=== PATIENT | female | born 1950 | race Caucasian/White ===

== ENCOUNTER 2021-02-03 15:27 | Inpatient (IN) | payer MEDICARE ==
[~2021-02-03] VITALS: Ht 165.1 cm; Wt 69.7 kg
[~2021-02-03 15:27] MED LIST: ASCO500W4 PO; BISA10SU71 PR; CA C1TAB62 PO; CRAN500T3 PO; DIAZ2TAB PO; DIPH25CA61 PO; L.AC1CAP6 PO; MOM; MONOLAURIN PO; MULT-658 PO; PHEN57OI PR; POTA20TA89 PO; THIA100T67 PO; VANC125C11 PO; [UNRECOGNIZED DRUG - CODE] EXT
--- NOTE | 2021-02-03 15:27 | NUR ---
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
--- NOTE | 2021-02-03 16:01 | NUR ---
PT LAYING ON GURNEY AWAKE & COMFORTABLE, RESPONDS APPROP TO STAFF, AUDREY VU PROVIDED FOR INCONT STOOL & PT REPOSITIONED OFF SACRUM- NO OTHER NEEDS AT THIS TIME, CALL LIGHT WITHIN REACH.
--- NOTE | 2021-02-03 16:25 | NUR ---
TASK RN: ASSIST PT WITH REPOSITIONING OFF BACK TO LEFT SIDE. CALL LIGHT IN REACH. AWAITING FURTHER DISPOSITION.
[2021-02-03] MEDS ORDERED: PLEASE ENTER HEIGHT AND WEIGHT MC SCH (16:30)
[2021-02-03] MEDS ORDERED: SODIUM CHLORIDE FLUSH 10ML SYR IVF ONE (16:30)
[2021-02-03 16:40] LABS: BASOPHILS % (AUTO) 1 % (0-1); EOSINOPHILS % (AUTO) 1 % (1-7); LYMPHOCYTES % (AUTO) 14 % (22-44); MEAN CORPUSCULAR HEMOGLOBIN 32.2 pg (27.0-34.8); MEAN CORPUSCULAR HGB CONC 33.5 g/dL (32.4-35.8); MEAN PLATELET VOLUME 7.6 fL (7.4-10.4); MONOCYTES % (AUTO) 9 % (2-9); NEUTROPHILS % (AUTO) 76 % (42-75); PLATELET COUNT 346 x10^3/uL (130-400); RED BLOOD COUNT 3.92 x10^6/uL (3.82-5.3); RED CELL DISTRIBUTION WIDTH 14.4 % (9.6-15.2)
[2021-02-03 16:49] LABS: ALANINE AMINOTRANSFERASE 35 U/L (12-78); ALBUMIN 2.5 g/dL (3.4-5.0); ANION GAP 4 mmol/L (5-15); CALCIUM 8.3 mg/dL (8.5-10.1); CHLORIDE 104 mmol/L (98-107)
[2021-02-03 16:50] LABS: CREATININE < 0.15 mg/dL (0.55-1.02)
[2021-02-03 16:51] LABS: ALKALINE PHOSPHATASE 88 U/L (45-117); BILIRUBIN,TOTAL 0.4 mg/dL (0.2-1.0); TOTAL PROTEIN 5.9 g/dL (6.4-8.2)
--- NOTE | 2021-02-03 16:54 | NUR ---
Note bailey in ED - 02/03/21 at 1655 by CORY TASK RN: PT SITTING UP ON EFRAÍN, NO ACUTE DISTRESS NOTED. NO C/O OFFERED. PT AWARE OF WAITING FOR MD EVAL/ORDERS.
--- NOTE | 2021-02-03 17:04 | NUR ---
PT CONTINUES LAYING ON GURNEY AWAKE & COMFORTABLE, RESPONDS APPROP TO STAFF, NAD, PT REPOSITIONED OFF SACRUM- NO OTHER NEEDS AT THIS TIME, CALL LIGHT WITHIN REACH.
[2021-02-03] MEDS ORDERED: SODIUM CHLORIDE FLUSH 10ML SYR IVF PRN (17:30)
[2021-02-03] MEDS ORDERED: SODIUM CHLORIDE 0.9% 1,000 ML IV ONE (17:30)
[2021-02-03] MEDS ORDERED: ONDANSETRON 2MG/ML, 2ML IVPush PRN (18:00)
[2021-02-03] MEDS ORDERED: PROMETHAZINE 25 MG/ML, 1ML IM PRN (18:00)
[2021-02-03] MEDS ORDERED: ONDANSETRON ODT 4 MG PO PRN (18:00)
[2021-02-03] MEDS ORDERED: hydrALAzine 20 MG/ML, 1ML IVPush PRN (18:00)
[2021-02-03] MEDS ORDERED: ACETAMINOPHEN 325 MG TABLET PO PRN (18:00)
[2021-02-03] MEDS ORDERED: POLYETHYLENE GLYCOL 17 GM PACKET PO PRN (18:00)
[2021-02-03] MEDS ORDERED: DIAZEPAM 2 MG TABLET PO PRN (18:00)
[2021-02-03] MEDS ORDERED: OXYcodone IR 5MG TABLET PO PRN (18:00)
[2021-02-03] MEDS ORDERED: HYDROmorphone 2 MG/ML, 1ML IVPush PRN (18:00)
[2021-02-03] MEDS ORDERED: DOCUSATE 100 MG CAPSULE PO PRN (18:00)
[2021-02-03] MEDS ORDERED: ENOXAPARIN 40 MG/0.4 ML SQ SCH (18:00)
--- NOTE | 2021-02-03 20:12 | NUR ---
Pt to be admitted to MEDICAL, room 331. Report called to DRABY.
[2021-02-03 21:00] VITALS: BP 106/62
[2021-02-03] MEDS: SODIUM CHLORIDE 0.9% 1,000 ML IV SCH (21:55)
[2021-02-03] MEDS: ENOXAPARIN 30 MG/0.3 ML SQ SCH (21:57)
[2021-02-04 00:04] VITALS: BP 114/69
[2021-02-04] MEDS: DIPHENHYDRAMINE 25 MG CAPSULE PO PRN ×2 (00:26→21:16)
[2021-02-04] MEDS: DIAZEPAM 2 MG TABLET PO PRN ×2 (03:18→21:16)
[2021-02-04 05:27] LABS: ALANINE AMINOTRANSFERASE 32 U/L (12-78); ALBUMIN 2.1 g/dL (3.4-5.0); CALCIUM 8.3 mg/dL (8.5-10.1); CHLORIDE 107 mmol/L (98-107)
[2021-02-04 05:38] LABS: BASOPHILS % (AUTO) 1 % (0-1); EOSINOPHILS % (AUTO) 3 % (1-7); LYMPHOCYTES % (AUTO) 31 % (22-44); MEAN CORPUSCULAR HEMOGLOBIN 32.3 pg (27.0-34.8); MEAN CORPUSCULAR HGB CONC 33.2 g/dL (32.4-35.8); MEAN PLATELET VOLUME 8.2 fL (7.4-10.4); MONOCYTES % (AUTO) 9 % (2-9); NEUTROPHILS % (AUTO) 57 % (42-75); PLATELET COUNT 336 x10^3/uL (130-400); RED CELL DISTRIBUTION WIDTH 14.4 % (9.6-15.2)
[2021-02-04 05:40] LABS: ALKALINE PHOSPHATASE 72 U/L (45-117); BILIRUBIN,TOTAL 0.4 mg/dL (0.2-1.0); TOTAL PROTEIN 5.4 g/dL (6.4-8.2)
[2021-02-04 05:55] LABS: CREATININE < 0.15 mg/dL (0.55-1.02)
[2021-02-04 06:01] LABS: ANION GAP 5 mmol/L (5-15)
[2021-02-04] MEDS: SODIUM CHLORIDE 0.9% 1,000 ML IV SCH (06:30)
[2021-02-04 08:00] VITALS: BP 117/74
[2021-02-04] MEDS: ENOXAPARIN 30 MG/0.3 ML SQ SCH (08:09)
[2021-02-04] MEDS: MULTIVITAMIN 1 TABLET PO SCH (08:09)
[2021-02-04 12:27] VITALS: BP 113/78
[2021-02-04] MEDS ORDERED: MAGNESIUM HYDROXIDE 8%, 30ML UDC PO SCH (13:30)
[2021-02-04] MEDS: ASCORBIC ACID 500 MG TABLET PO SCH (13:30)
[2021-02-04 15:15] LABS: MICROSCOPIC AUTO
[2021-02-04] MEDS: MAGNESIUM HYDROXIDE 8%, 30ML UDC PO SCH (17:26)
[2021-02-04 19:18] VITALS: BP 112/67
[2021-02-05] MEDS: BISACODYL 10 MG SUPP PR PRN (01:49)
[2021-02-05] MEDS ORDERED: DIAZEPAM 2 MG TABLET PO ONE (02:00)
[2021-02-05 06:52] VITALS: BP 119/74
[2021-02-05] MEDS: ASCORBIC ACID 500 MG TABLET PO SCH (09:00)
[2021-02-05] MEDS ORDERED: TEMPLATE NON-FORMULARY MED. (Ca Carb & Gluc/Mag Ox & Gluc** (Calcium Magnesium Caplet**) 1 PO SCH (09:00)
[2021-02-05] MEDS: MULTIVITAMIN 1 TABLET PO SCH (09:00)
[2021-02-05] MEDS: ENOXAPARIN 30 MG/0.3 ML SQ SCH (09:00)
[2021-02-05 12:05] VITALS: BP 122/73
[2021-02-05 18:29] VITALS: BP 99/65
[2021-02-05] MEDS: DIAZEPAM 2 MG TABLET PO SCH (21:16)
[2021-02-05] MEDS: DIPHENHYDRAMINE 25 MG CAPSULE PO PRN (21:16)
[2021-02-06 01:26] VITALS: BP 103/53
[2021-02-06] MEDS: DIAZEPAM 2 MG TABLET PO SCH ×2 (01:33→21:06)
[2021-02-06] MEDS: ENOXAPARIN 30 MG/0.3 ML SQ SCH (09:00)
[2021-02-06] MEDS: MAGNESIUM HYDROXIDE 8%, 30ML UDC PO SCH ×2 (09:00→17:40)
[2021-02-06] MEDS: ASCORBIC ACID 500 MG TABLET PO SCH (09:00)
[2021-02-06] MEDS: MULTIVITAMIN 1 TABLET PO SCH (09:00)
[2021-02-06 09:31] VITALS: BP 112/56
[2021-02-06 13:17] VITALS: BP 101/47
[2021-02-06 19:54] VITALS: BP 114/76
[2021-02-06] MEDS: DIPHENHYDRAMINE 25 MG CAPSULE PO PRN (21:06)
[2021-02-07] MEDS: BISACODYL 10 MG SUPP PR PRN (01:06)
[2021-02-07] MEDS: DIAZEPAM 2 MG TABLET PO SCH ×3 (02:32→21:02)
[2021-02-07 03:34] LABS: CLOSTRIDIUM DIFFICILE ANTIGEN NEGATIVE; CLOSTRIDIUM DIFFICILE TOXIN NEGATIVE (Negative)
[2021-02-07 06:53] VITALS: BP 110/68
[2021-02-07] MEDS: ASCORBIC ACID 500 MG TABLET PO SCH (07:50)
[2021-02-07] MEDS: MULTIVITAMIN 1 TABLET PO SCH (09:00)
[2021-02-07] MEDS: ENOXAPARIN 30 MG/0.3 ML SQ SCH (09:00)
[2021-02-07] MEDS ORDERED: DIAZEPAM 2 MG TABLET PO PRN (09:30)
[2021-02-07 12:19] VITALS: BP 93/50
[2021-02-07 18:43] VITALS: BP 98/61
[2021-02-07] MEDS: DIPHENHYDRAMINE 25 MG CAPSULE PO PRN (21:01)
[2021-02-08 00:55] VITALS: BP 115/57
[2021-02-08] MEDS: DIAZEPAM 2 MG TABLET PO SCH ×2 (03:00→21:00)
[2021-02-08 03:13] VITALS: BP 92/51
[2021-02-08 06:57] VITALS: BP 110/72
[2021-02-08] MEDS: MAGNESIUM HYDROXIDE 8%, 30ML UDC PO SCH (09:00)
[2021-02-08] MEDS: ENOXAPARIN 30 MG/0.3 ML SQ SCH (09:00)
[2021-02-08] MEDS: MULTIVITAMIN 1 TABLET PO SCH (09:00)
[2021-02-08] MEDS: ASCORBIC ACID 500 MG TABLET PO SCH (09:00)
[2021-02-08] MEDS: D5%-0.9% NACL 1,000 ML IV SCH ×2 (09:30→21:16)
[2021-02-08 10:19] LABS: ANION GAP 10 mmol/L (5-15); CALCIUM 10.4 mg/dL (8.5-10.1); CHLORIDE 99 mmol/L (98-107)
[2021-02-08 10:22] LABS: CREATININE 0.35 mg/dL (0.55-1.02)
[2021-02-08 13:55] VITALS: BP 105/70
[2021-02-08 18:30] VITALS: BP 107/68
[2021-02-08] MEDS ORDERED: LORazepam 2 MG/ML, 1ML IVPush PRN (20:00)
[2021-02-08] MEDS: DIPHENHYDRAMINE 50 MG/ML, 1ML IVPush PRN (21:17)
[2021-02-09 00:20] VITALS: BP 116/59
[2021-02-09] MEDS: DIAZEPAM 2 MG TABLET PO SCH ×2 (02:56→21:20)
[2021-02-09 05:23] LABS: CHLORIDE 107 mmol/L (98-107)
[2021-02-09 05:33] LABS: ANION GAP 5 mmol/L (5-15); CALCIUM 8.9 mg/dL (8.5-10.1)
[2021-02-09 05:34] LABS: BASOPHILS % (AUTO) 1 % (0-1); EOSINOPHILS % (AUTO) 0 % (1-7); LYMPHOCYTES % (AUTO) 16 % (22-44); MEAN CORPUSCULAR HEMOGLOBIN 32.1 pg (27.0-34.8); MEAN CORPUSCULAR HGB CONC 32.9 g/dL (32.4-35.8); MONOCYTES % (AUTO) 12 % (2-9); NEUTROPHILS % (AUTO) 71 % (42-75); PLATELET COUNT 351 x10^3/uL (130-400); RED BLOOD COUNT 4.34 x10^6/uL (3.82-5.3); RED CELL DISTRIBUTION WIDTH 14.6 % (9.6-15.2)
[2021-02-09 05:37] LABS: CREATININE < 0.15 mg/dL (0.55-1.02)
[2021-02-09 07:06] VITALS: BP 137/74
[2021-02-09] MEDS: BISACODYL 10 MG SUPP PR PRN (08:45)
[2021-02-09] MEDS: MULTIVITAMIN 1 TABLET PO SCH (08:45)
[2021-02-09] MEDS: ASCORBIC ACID 500 MG TABLET PO SCH (08:45)
[2021-02-09] MEDS: ENOXAPARIN 30 MG/0.3 ML SQ SCH (09:00)
[2021-02-09] MEDS: D5%-0.9% NACL 1,000 ML IV SCH (12:00)
[2021-02-09 13:41] VITALS: BP 104/63
[2021-02-09 20:00] VITALS: BP 114/71
[2021-02-09] MEDS: DIPHENHYDRAMINE 25 MG CAPSULE PO PRN (21:20)
[2021-02-10 00:45] VITALS: BP 112/66
[2021-02-10] MEDS: DIAZEPAM 2 MG TABLET PO SCH ×2 (02:28→21:52)
[2021-02-10 07:00] LABS: ANION GAP 6 mmol/L (5-15); CALCIUM 8.4 mg/dL (8.5-10.1); CHLORIDE 103 mmol/L (98-107)
[2021-02-10 07:04] LABS: CREATININE < 0.15 mg/dL (0.55-1.02)
[2021-02-10 07:22] VITALS: BP 106/65
[2021-02-10] MEDS: ASCORBIC ACID 500 MG TABLET PO SCH (08:04)
[2021-02-10] MEDS: ENOXAPARIN 30 MG/0.3 ML SQ SCH (08:04)
[2021-02-10] MEDS: MULTIVITAMIN 1 TABLET PO SCH (08:04)
[2021-02-10] MEDS: MAGNESIUM HYDROXIDE 8%, 30ML UDC PO SCH ×3 (08:04→18:25)
[2021-02-10 15:12] VITALS: BP 115/68
[2021-02-10 21:51] VITALS: BP 102/59
[2021-02-10] MEDS: DIPHENHYDRAMINE 25 MG CAPSULE PO PRN (21:52)
[2021-02-11] MEDS: BISACODYL 10 MG SUPP PR PRN (01:55)
[2021-02-11 03:12] VITALS: BP 105/63
[2021-02-11] MEDS: DIAZEPAM 2 MG TABLET PO SCH ×2 (03:15→20:18)
[2021-02-11 07:02] VITALS: BP 135/75
[2021-02-11] MEDS: ASCORBIC ACID 500 MG TABLET PO SCH (09:00)
[2021-02-11] MEDS: MULTIVITAMIN 1 TABLET PO SCH (09:00)
[2021-02-11] MEDS: ENOXAPARIN 30 MG/0.3 ML SQ SCH (09:00)
[2021-02-11 12:02] VITALS: BP 132/78
[2021-02-11 18:25] VITALS: BP 93/57
[2021-02-11] MEDS: DIPHENHYDRAMINE 25 MG CAPSULE PO PRN (20:18)
[2021-02-11] MEDS: MAGNESIUM HYDROXIDE 8%, 30ML UDC PO SCH (20:19)
[2021-02-12 00:17] VITALS: BP 102/69
[2021-02-12] MEDS: DIAZEPAM 2 MG TABLET PO SCH ×2 (01:57→20:16)
[2021-02-12] MEDS: ASCORBIC ACID 500 MG TABLET PO SCH (08:42)
[2021-02-12] MEDS: ENOXAPARIN 30 MG/0.3 ML SQ SCH (08:43)
[2021-02-12] MEDS: MULTIVITAMIN 1 TABLET PO SCH (08:43)
[2021-02-12 10:44] VITALS: BP 108/69
[2021-02-12 12:02] VITALS: BP 113/70
[2021-02-12] MEDS: MAGNESIUM HYDROXIDE 8%, 30ML UDC PO SCH (17:00)
[2021-02-12 18:23] VITALS: BP 96/60
[2021-02-12] MEDS: DIPHENHYDRAMINE 25 MG CAPSULE PO PRN (20:16)
[2021-02-13 00:04] VITALS: BP 95/61
[2021-02-13] MEDS: DIAZEPAM 2 MG TABLET PO SCH ×3 (02:22→20:09)
[2021-02-13 06:39] VITALS: BP 98/61
[2021-02-13] MEDS: ASCORBIC ACID 500 MG TABLET PO SCH (08:48)
[2021-02-13] MEDS: MAGNESIUM HYDROXIDE 8%, 30ML UDC PO SCH (09:00)
[2021-02-13] MEDS: MULTIVITAMIN 1 TABLET PO SCH (09:00)
[2021-02-13] MEDS: ENOXAPARIN 30 MG/0.3 ML SQ SCH (09:00)
[2021-02-13 12:16] VITALS: BP 97/94
[2021-02-13 18:35] VITALS: BP 96/56
[2021-02-13] MEDS: DIPHENHYDRAMINE 25 MG CAPSULE PO PRN (20:10)
[2021-02-14] MEDS: DIAZEPAM 2 MG TABLET PO SCH ×3 (00:04→20:45)
[2021-02-14 07:06] VITALS: BP 96/58
[2021-02-14] MEDS: MULTIVITAMIN 1 TABLET PO SCH (08:56)
[2021-02-14] MEDS: ASCORBIC ACID 500 MG TABLET HOMEMEDPO SCH (08:56)
[2021-02-14] MEDS: ENOXAPARIN 30 MG/0.3 ML SQ SCH (08:58)
[2021-02-14 12:58] VITALS: BP 97/63
[2021-02-14] MEDS: MAGNESIUM HYDROXIDE 8%, 30ML UDC HOMEMEDPO SCH (16:53)
[2021-02-14 18:13] VITALS: BP 118/75
[2021-02-14] MEDS: DIPHENHYDRAMINE 50 MG/ML, 1ML IVPush PRN (20:49)
[2021-02-15 00:04] VITALS: BP 104/70
[2021-02-15] MEDS: BISACODYL 10 MG SUPP PR PRN (01:39)
[2021-02-15] MEDS: DIAZEPAM 2 MG TABLET PO SCH ×3 (02:53→20:24)
[2021-02-15] MEDS ORDERED: BISACODYL 10 MG SUPP PR ONE (06:30)
[2021-02-15 06:58] VITALS: BP 106/70
[2021-02-15] MEDS: ENOXAPARIN 30 MG/0.3 ML SQ SCH (08:31)
[2021-02-15] MEDS: MULTIVITAMIN 1 TABLET PO SCH (08:31)
[2021-02-15] MEDS: ASCORBIC ACID 500 MG TABLET HOMEMEDPO SCH (08:31)
[2021-02-15] MEDS: D5%-0.45% NACL 1,000 ML IV SCH ×3 (12:00→23:20)
[2021-02-15 13:26] VITALS: BP 103/71
[2021-02-15] MEDS ORDERED: MAGNESIUM HYDROXIDE 8%, 30ML UDC HOMEMEDPO SCH (17:00)
[2021-02-15 18:14] VITALS: BP 99/68
[2021-02-15] MEDS: DIPHENHYDRAMINE 25 MG CAPSULE PO PRN (20:24)
[2021-02-16 00:02] VITALS: BP 96/64
[2021-02-16] MEDS: DIAZEPAM 2 MG TABLET PO SCH ×3 (00:06→22:01)
[2021-02-16] MEDS: D5%-0.45% NACL 1,000 ML IV SCH ×3 (01:06→23:01)
[2021-02-16] MEDS ORDERED: DIAZEPAM 5 MG/ML, 2ML IV ONE (03:40)
[2021-02-16] MEDS ORDERED: DIAZEPAM 5 MG/ML, 2ML ONE (03:48)
[2021-02-16] MEDS: ASCORBIC ACID 500 MG TABLET HOMEMEDPO SCH (09:00)
[2021-02-16] MEDS: MULTIVITAMIN 1 TABLET PO SCH (09:00)
[2021-02-16] MEDS ORDERED: DIAZEPAM 5 MG/ML, 2ML IV SCH ×2 (09:00→21:00)
[2021-02-16] MEDS: ENOXAPARIN 30 MG/0.3 ML SQ SCH (09:00)
[2021-02-16] MEDS: MAGNESIUM HYDROXIDE 8%, 30ML UDC HOMEMEDPO SCH ×2 (14:37→18:22)
[2021-02-16 19:24] VITALS: BP 98/64
[2021-02-16] MEDS: DIPHENHYDRAMINE 25 MG CAPSULE PO PRN (22:01)
[2021-02-17] MEDS ORDERED: DIAZEPAM 2 MG TABLET PO PRN
[2021-02-17] MEDS: DIAZEPAM 2 MG TABLET PO SCH ×3 (02:30→21:49)
[2021-02-17 02:34] VITALS: BP 94/61
[2021-02-17] MEDS ORDERED: DIAZEPAM 5 MG/ML, 2ML IV SCH ×2 (03:00)
[2021-02-17] MEDS ORDERED: DIAZEPAM 2 MG TABLET PO SCH ×2 (03:00→09:30)
[2021-02-17 05:52] LABS: BASOPHILS % (AUTO) 1 % (0-1); EOSINOPHILS % (AUTO) 1 % (1-7); LYMPHOCYTES % (AUTO) 23 % (22-44); MEAN CORPUSCULAR HEMOGLOBIN 32.9 pg (27.0-34.8); MEAN CORPUSCULAR HGB CONC 34.3 g/dL (32.4-35.8); MEAN PLATELET VOLUME 8.4 fL (7.4-10.4); MONOCYTES % (AUTO) 7 % (2-9); NEUTROPHILS % (AUTO) 69 % (42-75); PLATELET COUNT 353 x10^3/uL (130-400); RED BLOOD COUNT 4.35 x10^6/uL (3.82-5.3); RED CELL DISTRIBUTION WIDTH 13.9 % (9.6-15.2)
[2021-02-17 06:13] LABS: CHLORIDE 99 mmol/L (98-107)
[2021-02-17 06:27] LABS: ALANINE AMINOTRANSFERASE 24 U/L (12-78); ALBUMIN 2.8 g/dL (3.4-5.0); ALKALINE PHOSPHATASE 92 U/L (45-117); ANION GAP 6 mmol/L (5-15); BILIRUBIN,TOTAL 0.3 mg/dL (0.2-1.0); CREATININE 0.15 mg/dL (0.55-1.02); TOTAL PROTEIN 6.3 g/dL (6.4-8.2)
[2021-02-17 06:54] VITALS: BP 100/60
[2021-02-17] MEDS: ENOXAPARIN 30 MG/0.3 ML SQ SCH (09:00)
[2021-02-17] MEDS: ASCORBIC ACID 500 MG TABLET HOMEMEDPO SCH (09:00)
[2021-02-17] MEDS: MULTIVITAMIN 1 TABLET PO SCH (09:00)
[2021-02-17 22:03] VITALS: BP 92/54
[2021-02-17] MEDS: DIPHENHYDRAMINE 25 MG CAPSULE PO PRN (22:05)
[2021-02-18 00:09] VITALS: BP 95/59
[2021-02-18] MEDS: DIAZEPAM 2 MG TABLET PO SCH ×3 (00:22→21:27)
[2021-02-18] MEDS: ENOXAPARIN 30 MG/0.3 ML SQ SCH (07:23)
[2021-02-18] MEDS: MULTIVITAMIN 1 TABLET PO SCH (07:23)
[2021-02-18] MEDS: ASCORBIC ACID 500 MG TABLET HOMEMEDPO SCH ×2 (07:23→11:19)
[2021-02-18 16:13] VITALS: BP 90/53
[2021-02-18] MEDS: MAGNESIUM HYDROXIDE 8%, 30ML UDC HOMEMEDPO SCH (17:01)
[2021-02-18 18:26] VITALS: BP 95/59
[2021-02-18] MEDS: DIPHENHYDRAMINE 25 MG CAPSULE PO PRN (21:27)
[2021-02-19 01:40] VITALS: BP 93/60
[2021-02-19] MEDS: DIAZEPAM 2 MG TABLET PO SCH ×4 (02:29→23:54)
[2021-02-19] MEDS: ENOXAPARIN 30 MG/0.3 ML SQ SCH (09:00)
[2021-02-19] MEDS: MULTIVITAMIN 1 TABLET PO SCH (09:00)
[2021-02-19 09:35] VITALS: BP 108/70
[2021-02-19] MEDS: ASCORBIC ACID 500 MG TABLET HOMEMEDPO SCH (10:09)
[2021-02-19 15:00] VITALS: BP 90/58
[2021-02-19 19:04] VITALS: BP 94/58
[2021-02-19] MEDS: DIPHENHYDRAMINE 25 MG CAPSULE PO PRN (21:16)
[2021-02-19 23:54] VITALS: BP 101/67
[2021-02-20] MEDS: DIAZEPAM 2 MG TABLET PO SCH ×2 (03:08→20:09)
[2021-02-20 06:32] VITALS: BP 109/69
[2021-02-20] MEDS: ENOXAPARIN 30 MG/0.3 ML SQ SCH (09:00)
[2021-02-20] MEDS: MULTIVITAMIN 1 TABLET PO SCH (09:00)
[2021-02-20] MEDS: ASCORBIC ACID 500 MG TABLET HOMEMEDPO SCH (09:43)
[2021-02-20 12:33] VITALS: BP 111/72
[2021-02-20] MEDS: MAGNESIUM HYDROXIDE 8%, 30ML UDC HOMEMEDPO SCH (16:51)
[2021-02-20 19:03] VITALS: BP 95/66
[2021-02-20] MEDS: DIPHENHYDRAMINE 25 MG CAPSULE PO PRN (20:09)
[2021-02-21 00:08] VITALS: BP 115/73
[2021-02-21] MEDS: BISACODYL 10 MG SUPP PR PRN (00:50)
[2021-02-21] MEDS: DIAZEPAM 2 MG TABLET PO SCH ×4 (01:54→23:39)
[2021-02-21 06:57] VITALS: BP 110/71
[2021-02-21] MEDS ORDERED: ACETAMINOPHEN 325 MG TABLET PO PRN (07:00)
[2021-02-21] MEDS: MULTIVITAMIN 1 TABLET PO SCH (09:00)
[2021-02-21] MEDS: ENOXAPARIN 30 MG/0.3 ML SQ SCH (09:00)
[2021-02-21] MEDS: ASCORBIC ACID 500 MG TABLET HOMEMEDPO SCH (09:21)
[2021-02-21 12:44] VITALS: BP 96/64
[2021-02-21 18:13] VITALS: BP 98/64
[2021-02-21] MEDS: DIPHENHYDRAMINE 25 MG CAPSULE PO PRN (19:57)
[2021-02-22] VITALS: BP 100/65
[2021-02-22] MEDS: DIAZEPAM 2 MG TABLET PO SCH ×2 (03:02→21:55)
[2021-02-22 07:06] VITALS: BP 102/65
[2021-02-22] MEDS: ENOXAPARIN 30 MG/0.3 ML SQ SCH (08:52)
[2021-02-22] MEDS: MULTIVITAMIN 1 TABLET PO SCH (08:52)
[2021-02-22] MEDS: ASCORBIC ACID 500 MG TABLET HOMEMEDPO SCH (09:20)
[2021-02-22 13:53] VITALS: BP 89/56
[2021-02-22] MEDS: MAGNESIUM HYDROXIDE 8%, 30ML UDC HOMEMEDPO SCH ×2 (17:00→17:42)
[2021-02-22 18:15] VITALS: BP 99/63
[2021-02-22] MEDS: DIPHENHYDRAMINE 25 MG CAPSULE PO PRN (21:55)
[2021-02-23 00:01] VITALS: BP 98/60
[2021-02-23] MEDS: BISACODYL 10 MG SUPP PR PRN (00:45)
[2021-02-23] MEDS: DIAZEPAM 2 MG TABLET PO SCH ×3 (02:47→21:04)
[2021-02-23 07:31] VITALS: BP 91/60
[2021-02-23] MEDS: MULTIVITAMIN 1 TABLET PO SCH (08:00)
[2021-02-23] MEDS: ENOXAPARIN 30 MG/0.3 ML SQ SCH (08:00)
[2021-02-23] MEDS: ASCORBIC ACID 500 MG TABLET HOMEMEDPO SCH (11:43)
[2021-02-23 14:03] VITALS: BP 92/79
[2021-02-23 19:01] VITALS: BP_SYST 85; BP_SYST 87; BP_DIAS 52; BP_DIAS 54
[2021-02-23] MEDS: CALCIUM/VITAMIN D3 250-125 TABLET PO SCH (21:04)
[2021-02-23] MEDS: DIPHENHYDRAMINE 25 MG CAPSULE PO PRN (21:04)
[2021-02-24 00:22] VITALS: BP 95/62
[2021-02-24] MEDS: DIAZEPAM 2 MG TABLET PO SCH ×3 (00:55→03:18)
[2021-02-24 08:04] VITALS: BP 96/63
[2021-02-24] MEDS: ENOXAPARIN 30 MG/0.3 ML SQ SCH (09:00)
[2021-02-24] MEDS: MULTIVITAMIN 1 TABLET PO SCH (09:00)
[2021-02-24 14:12] VITALS: BP 94/62
[2021-02-24] MEDS: ASCORBIC ACID 500 MG TABLET HOMEMEDPO SCH (16:24)
[2021-02-24] MEDS: MAGNESIUM HYDROXIDE 8%, 30ML UDC HOMEMEDPO SCH (16:24)
[2021-02-24] MEDS: CALCIUM/VITAMIN D3 250-125 TABLET PO SCH ×2 (16:24→19:24)
[2021-02-24 19:16] VITALS: BP 97/63
[2021-02-24] MEDS: DIAZEPAM 2 MG TABLET PO PRN (19:56)
[2021-02-24] MEDS: DIPHENHYDRAMINE 25 MG CAPSULE PO PRN (19:56)
[2021-02-25 00:45] VITALS: BP 121/73
[2021-02-25] MEDS: DIAZEPAM 2 MG TABLET PO PRN ×2 (02:44→20:11)
[2021-02-25 07:27] VITALS: BP 147/81
[2021-02-25] MEDS: ASCORBIC ACID 500 MG TABLET HOMEMEDPO SCH (07:52)
[2021-02-25] MEDS: MULTIVITAMIN 1 TABLET PO SCH (07:52)
[2021-02-25] MEDS: ENOXAPARIN 30 MG/0.3 ML SQ SCH (07:52)
[2021-02-25] MEDS: CALCIUM/VITAMIN D3 250-125 TABLET PO SCH ×2 (07:52→20:08)
[2021-02-25 13:18] VITALS: BP 102/57
[2021-02-25 18:59] VITALS: BP 94/55
[2021-02-25] MEDS: DIPHENHYDRAMINE 25 MG CAPSULE PO PRN (20:11)
[2021-02-26] MEDS: DIAZEPAM 2 MG TABLET PO PRN ×3 (00:14→21:17)
[2021-02-26 00:22] VITALS: BP 92/59
[2021-02-26 06:57] VITALS: BP 100/63
[2021-02-26] MEDS: ASCORBIC ACID 500 MG TABLET HOMEMEDPO SCH (08:02)
[2021-02-26] MEDS: CALCIUM/VITAMIN D3 250-125 TABLET PO SCH ×2 (08:03→21:00)
[2021-02-26] MEDS: ENOXAPARIN 30 MG/0.3 ML SQ SCH (08:04)
[2021-02-26] MEDS: MULTIVITAMIN 1 TABLET PO SCH (08:04)
[2021-02-26 15:08] VITALS: BP 94/56
[2021-02-26 18:33] VITALS: BP 113/77
[2021-02-26] MEDS: MAGNESIUM HYDROXIDE 8%, 30ML UDC HOMEMEDPO SCH (18:36)
[2021-02-26] MEDS: DIPHENHYDRAMINE 25 MG CAPSULE PO PRN (21:14)
[2021-02-27 01:03] VITALS: BP 86/55
[2021-02-27] MEDS: BISACODYL 10 MG SUPP PR PRN (01:10)
[2021-02-27] MEDS: DIAZEPAM 2 MG TABLET PO PRN (02:40)
[2021-02-27] MEDS ORDERED: SODIUM CHLORIDE 0.9% 1,000 ML IV SCH (07:30)
[2021-02-27 08:58] VITALS: BP 101/63
[2021-02-27] MEDS: CALCIUM/VITAMIN D3 250-125 TABLET PO SCH (09:00)
[2021-02-27] MEDS: MULTIVITAMIN 1 TABLET PO SCH (09:00)
[2021-02-27 12:38] VITALS: BP 106/67
[2021-02-27] MEDS: ASCORBIC ACID 500 MG TABLET HOMEMEDPO SCH (13:00)
[2021-02-27] MEDS ORDERED: CALC1TAB68 PO (17:58)
== END 2021-02-27 18:35 | disposition home health service (06) | DRG 371 ==
LOC: ED 17:31 → EDIP 17:42 → 3N 19:38
PROVIDERS: ADMIT Hospitalist; ATTEND Internal Medicine
PROC: 0DP0XUZ Removal of Feeding Device from Upper Intestinal Tract, External Approach (ICD-10-PCS; principal; 2021-02-09)
PROC: 0DH67UZ Insertion of Feeding Device into Stomach, Via Natural or Artificial Opening (ICD-10-PCS; 2021-02-15)
DX: A04.9 Bacterial intestinal infection, unspecified (principal); E43 Unspecified severe protein-calorie malnutrition; K56.609 Unspecified intestinal obstruction, unspecified as to partial versus complete obstruction; G82.20 Paraplegia, unspecified; E87.1 Hypo-osmolality and hyponatremia; C71.9 Malignant neoplasm of brain, unspecified; K56.7 Ileus, unspecified; L89.90 Pressure ulcer of unspecified site, unspecified stage; G35 Multiple sclerosis; N31.9 Neuromuscular dysfunction of bladder, unspecified; E86.0 Dehydration; E83.52 Hypercalcemia; Z20.822 Contact with and (suspected) exposure to COVID-19; I95.9 Hypotension, unspecified; E83.51 Hypocalcemia; Z91.19 Patient's noncompliance with other medical treatment and regimen; Z86.19 Personal history of other infectious and parasitic diseases; Z87.440 Personal history of urinary (tract) infections; Z93.59 Other cystostomy status; Z68.25 Body mass index [BMI] 25.0-25.9, adult; Z88.5 Allergy status to narcotic agent; Z88.8 Allergy status to other drugs, medicaments and biological substances; Z88.6 Allergy status to analgesic agent; Z91.012 Allergy to eggs
CPT/HCPCS: 36415; 74018; 80048; 80053; 81001; 83036; 83690; 83735; 84100; 84443; 85025; 86480; 87077; 87086; 87186; 87324; 93005; 99285; G0378; J2405; J3360; J7042; U0005; J1200; J7030; Q0163; U0003